=== PATIENT | male | born 1950 | race Hispanic/Latino ===

== ENCOUNTER 2016-12-03 07:55 | Outpatient (CLI) | payer OTHER ==
[2016-12-03 09:20] LABS: Blood Urea Nitrogen 25 mg/dL (9-20)
[2016-12-03] MEDS ORDERED: NACL ONE (09:28)
--- NOTE | 2016-12-03 10:08 | Cat Scan Report ---
CT ABDOMEN WITH CONTRAST INDICATION: Abdominal mass in the left flank. COMPARISON: None similar. FINDINGS: Abdomen CT performed following oral contrast and intravenous administration of 100 cc of Omnipaque 300. LUNG BASES: Nonspecific distal esophageal wall prominence/thickening, not excluded for gastroesophageal reflux and/or hiatal hernia, amongst others. Few coronary calcifications. ABDOMEN: Indeterminate 5 mm splenic hypodensity on axial image 71, series 2. Mild nonspecific bilateral perinephric stranding. Otherwise unremarkable liver, spleen, gallbladder, pancreas, adrenals, nonaneurysmal abdominal aorta with atherosclerotic changes, IVC and kidneys without hydronephrosis, ascites or size significant adenopathy. Approximately 2.8 cm midline duodenal diverticulum along the third portion. Opacified GI tract otherwise nonobstructive and within normal limits. Mild to moderate ascending and transverse colon stool/possible constipation. Multiple descending colon diverticuli. Normal appendix. Tiny fat containing umbilical hernia with a transverse neck of 0.7 cm. Approximately 6 x 2 cm right lower quadrant abdominal wall lipoma laterally adjacent to the iliac bone incidentally noted, axial image 262, series 2. Multilevel spinal degenerative changes, including spurring, lower lumbar facet arthropathy and right more than left SI joint degenerative spurring. Upper to mid lumbar Schmorl's nodes with L1-L2 and L2-L3 disc degeneration with narrowing and slight vacuum phenomenon as well. CONCLUSION: 1. No acute left flank CT abnormality. Rather, a right lower quadrant subcutaneous lipoma incidentally seen, as described. 2. Few other incidental findings, including diverticulosis and various bony degenerative changes, amongst others, as above. Thank you for the opportunity to participate in this patient's care.
== END 2016-12-03 07:56 | disposition home or self-care (01) ==
LOC: CT 07:55
PROVIDERS: ATTEND Internal Medicine
DX: D17.39 Benign lipomatous neoplasm of skin and subcutaneous tissue of other sites (principal); K57.10 Diverticulosis of small intestine without perforation or abscess without bleeding; K42.9 Umbilical hernia without obstruction or gangrene; M47.816 Spondylosis without myelopathy or radiculopathy, lumbar region; M12.88 Other specific arthropathies, not elsewhere classified, other specified site; I10 Essential (primary) hypertension; J44.9 Chronic obstructive pulmonary disease, unspecified
CPT/HCPCS: 36415; 74160; 82565; 84520; Q9967